=== PATIENT | male | born 1940 | race Caucasian/White ===

== ENCOUNTER 2023-08-21 10:38 | Inpatient (IN) | payer BC ==
[2023-08-21] MEDS ORDERED: SODIUM CHLORIDE 1,000 ML IV ONE (11:09)
[2023-08-21 11:31] LABS: HEMATOCRIT 43.2 % (35.4-49); MCH 27.5 pg (25.7-33.7); MCHC 32.4 g/dl (32.0-35.9); MEAN CELL VOLUME 84.7 fl (80-96); MEAN PLT VOLUME 9.7 fl (7.5-11.1); PLATELET COUNT 176.2 10^3/uL (134-434); RDW 16.2 % (11.9-15.9); WHITE BLOOD COUNT 8.9 10^3/uL (4.0-10.8)
[2023-08-21 11:49] LABS: INR 1.28 (0.83-1.09); PROTHROMBIN TIME (PATIENT) 14.8 SEC (9.7-13.0)
[2023-08-21 11:52] LABS: ALBUMIN 4.1 g/dl (3.4-5.0); BILIRUBIN,TOTAL 1.1 mg/dl (0.2-1); CALCIUM 9.4 mg/dl (8.5-10.1); CREATININE 1.1 mg/dl (0.6-1.3); POTASSIUM 3.9 mmol/L (3.5-5.1); TOT PROT 6.6 g/dl (6.4-8.2)
[2023-08-21 12:38] LABS: PLATELET ESTIMATE ADEQUATE
[2023-08-21] MEDS ORDERED: APIXABAN 5 MG TABLET PO ONE (13:47)
[2023-08-21] MEDS ORDERED: METOPROLOL TARTRATE 25 MG TABLET (FP) PO ONE (14:16)
[2023-08-21] MEDS ORDERED: METOPROLOL TARTRATE 25 MG TABLET (FP) ONE (14:21)
[2023-08-21 15:50] VITALS: BMI 34.4
[2023-08-21] MEDS: METOPROLOL TARTRATE 25 MG TABLET (FP) PO SCH (17:21)
[2023-08-21] MEDS: APIXABAN 5 MG TABLET PO SCH (21:13)
[2023-08-21] MEDS: INSULIN SLIDING SCALE (NOVOLOG) 1 VIAL SQ SCH (21:17)
[2023-08-21] MEDS ORDERED: INSULIN (LEVEMIR) 100 UNITS/ML UNITS SQ SCH (22:00)
[2023-08-22] MEDS: METOPROLOL TARTRATE 25 MG TABLET (FP) PO SCH ×3 (00:19→15:08)
[2023-08-22] MEDS: INSULIN SLIDING SCALE (NOVOLOG) 1 VIAL SQ SCH ×3 (06:03→17:50)
[2023-08-22 06:04] VITALS: RESP 20
[2023-08-22 08:04] LABS: HEMATOCRIT 43.2 % (35.4-49); HEMOGLOBIN 13.8 G/dL (11.7-16.9); MCHC 31.8 g/dl (32.0-35.9); MEAN CELL VOLUME 84.8 fl (80-96); MEAN PLT VOLUME 10.3 fl (7.5-11.1); PLATELET COUNT 165.5 10^3/uL (134-434); RBC 5.09 10^6/uL (4.00-5.60); RDW 16.3 % (11.9-15.9); WHITE BLOOD COUNT 8.6 10^3/uL (4.0-10.8)
[2023-08-22] MEDS ORDERED: TAMSULOSIN HCL 0.4 MG CAP PO SCH (08:30)
[2023-08-22 08:42] LABS: BILIRUBIN,TOTAL 1.1 mg/dl (0.2-1); CALCIUM 9.3 mg/dl (8.5-10.1); CREATININE 1.1 mg/dl (0.6-1.3); MAGNESIUM 1.9 mg/dL (1.8-2.4); POTASSIUM 4.2 mmol/L (3.5-5.1); TOT PROT 6.6 g/dl (6.4-8.2)
[2023-08-22] MEDS: APIXABAN 5 MG TABLET PO SCH (09:40)
[2023-08-22] MEDS ORDERED: HYDROCHLOROTHIAZIDE 25 MG TABLET (FP) PO SCH (10:00)
[2023-08-22] MEDS ORDERED: LISINOPRIL 20 MG TABLET PO SCH (10:00)
[2023-08-22] MEDS ORDERED: FINASTERIDE 5 MG TABLET (FP) PO SCH (10:00)
[2023-08-22] MEDS ORDERED: amLODIPine BESYLATE 5 MG TABLET (FP) PO SCH (10:00)
[2023-08-22 11:25] VITALS: BP 123/78; PULSE 76; TEMP 97.8
[2023-08-22] MEDS ORDERED: metoPROLOL SUCCINATE 25 MG TAB.SR.24H (FP) PO SCH (22:00)
== END 2023-08-22 18:02 | disposition home or self-care (01) | DRG 726 ==
LOC: FER 10:38 → FM/S 13:14
PROVIDERS: ADMIT Student in an Organized Health Care Education/Training Program; ATTEND Internal Medicine
DX: N40.1 Benign prostatic hyperplasia with lower urinary tract symptoms (principal); I48.91 Unspecified atrial fibrillation; R35.0 Frequency of micturition; I10 Essential (primary) hypertension; E11.9 Type 2 diabetes mellitus without complications
CPT/HCPCS: 36415; 71046-TC-FY; 80053; 80061; 81003; 81015; 82550; 82553; 82962; 83036; 83735; 83880; 84443; 84484; 85027; 85610; 87086; 93005; 93306-TC; 99285-25

== ENCOUNTER 2023-12-22 10:16 | Inpatient (IN) | payer BC, OTHER ==
[2023-12-22 11:53] LABS: BASO % 0.8 % (0-2.0); EOS % 3.8 % (0-4.5); HEMATOCRIT 40.2 % (35.4-49); HEMOGLOBIN 13.8 GM/dL (11.7-16.9); LYMPH % 19.5 % (8-40); MCH 27.1 pg (25.7-33.7); MCHC 34.3 g/dl (32.0-35.9); MEAN PLT VOLUME 8.6 fl (7.5-11.1); NEUT % 66.9 % (42.8-82.8); PLATELET COUNT 189 10^3/uL (134-434); RBC 5.09 M/mm3 (4.00-5.60); RDW 18.5 % (11.9-15.9); WHITE BLOOD COUNT 9.1 K/mm3 (4.0-10.0)
[2023-12-22 11:57] LABS: EPI CELLS 6 /uL (0-25.1); HYALINE CASTS 1 /uL (0-3.1); PH,URINE 6.5 (5.0-8.0); URINE APPEARANCE TURBID; URINE BACTERIA 109 /uL (0-1359); URINE BILIRUBIN NEGATIVE (NEGATIVE); URINE COLOR YELLOW; URINE GLUCOSE (UA) NEGATIVE (NEGATIVE); URINE KETONE NEGATIVE (NEGATIVE); URINE LEUK ESTERASE 3+ (NEGATIVE); URINE NITRITE NEGATIVE (NEGATIVE); URINE PROTEIN 1+ (NEGATIVE); URINE WBC 15232 /uL (0-25.8)
[2023-12-22 12:30] LABS: URINE RBC 365 /uL (0-23.9); YEAST NONE SEEN (NEGATIVE)
[2023-12-22 12:50] LABS: POTASSIUM 4.1 mmol/L (3.5-5.1)
[2023-12-22 12:56] LABS: ALBUMIN 3.2 g/dl (3.4-5.0); BLOOD UREA NITROGEN 15.5 mg/dL (7-18); MAGNESIUM 1.9 mg/dL (1.8-2.4)
[2023-12-22 12:59] LABS: CREATININE 0.8 mg/dL (0.55-1.3); PHOSPHOROUS 3.4 mg/dL (2.5-4.9)
[2023-12-22 13:00] LABS: TOT PROT 6.8 g/dl (6.4-8.2)
[2023-12-22 13:04] LABS: N-TERMINAL BNP 2600.1 pg/ml (5-450)
[2023-12-22] MEDS ORDERED: FUROSEMIDE 40 MG/4 ML INJECTABLE VIAL ONE (14:52)
[2023-12-22] MEDS ORDERED: CEFTRIAXONE 1 GM/50 ML BAG ONE (14:52)
[2023-12-22] MEDS: FUROSEMIDE 40 MG/4 ML INJECTABLE VIAL IVPUSH ONE (14:59)
[2023-12-22] MEDS ORDERED: ACETAMINOPHEN 325 MG TABLET (FP) PO PRN (16:37)
[2023-12-22] MEDS ORDERED: CARVEDILOL 12.5 MG TABLET (FP) ONE (23:04)
[2023-12-22] MEDS ORDERED: APIXABAN 5 MG TABLET ONE (23:04)
[2023-12-22] MEDS: CARVEDILOL 12.5 MG TABLET (FP) PO SCH (23:10)
[2023-12-22] MEDS: INSULIN (LEVEMIR) 100 UNITS/ML UNITS SQ SCH (23:11)
[2023-12-22] MEDS: APIXABAN 5 MG TABLET PO SCH (23:11)
[2023-12-22] MEDS: INSULIN ASPART SLIDING SCALE (NOVOLOG) 1 VIAL SQ SCH (23:12)
[2023-12-23] MEDS ORDERED: INSULIN (LEVEMIR) 100 UNITS/ML UNITS SQ ONE ×2 (04:57→08:04)
[2023-12-23] MEDS ORDERED: INSULIN (NOVOLOG MIX 70/30) 100 UNITS/ML MDV SQ ONE (04:57)
[2023-12-23] MEDS ORDERED: INSULIN REGULAR HUMAN 100 UNITS/ML *VIAL ONE (04:57)
[2023-12-23 07:39] LABS: BASO % 0.4 % (0-2.0); EOS % 4.2 % (0-4.5); HEMATOCRIT 41.5 % (35.4-49); HEMOGLOBIN 13.8 GM/dL (11.7-16.9); LYMPH % 23.7 % (8-40); MCH 26.7 pg (25.7-33.7); MCHC 33.2 g/dl (32.0-35.9); MEAN CELL VOLUME 80.5 fl (80-96); MEAN PLT VOLUME 9.1 fl (7.5-11.1); NEUT % 60.7 % (42.8-82.8); PLATELET COUNT 187 10^3/uL (134-434); RBC 5.16 M/mm3 (4.00-5.60); RDW 18.5 % (11.9-15.9); WHITE BLOOD COUNT 9.7 K/mm3 (4.0-10.0)
[2023-12-23 07:44] LABS: POTASSIUM 3.9 mmol/L (3.5-5.1)
[2023-12-23 07:49] LABS: ALBUMIN 3.2 g/dl (3.4-5.0); BLOOD UREA NITROGEN 20.2 mg/dL (7-18); CALCIUM 8.9 mg/dL (8.5-10.1); MAGNESIUM 1.7 mg/dL (1.8-2.4)
[2023-12-23 07:53] LABS: TOT PROT 6.6 g/dl (6.4-8.2)
[2023-12-23] MEDS: TAMSULOSIN HCL 0.4 MG CAP PO SCH (08:11)
[2023-12-23] MEDS: FUROSEMIDE 40 MG/4 ML INJECTABLE VIAL IVPUSH SCH (09:00)
[2023-12-23] MEDS: LISINOPRIL 20 MG TABLET PO SCH (09:00)
[2023-12-23] MEDS: FINASTERIDE 5 MG TABLET (FP) PO SCH (09:00)
[2023-12-23] MEDS ORDERED: CEFTRIAXONE 1 GM/50 ML BAG ONE (09:02)
[2023-12-23] MEDS: CEFTRIAXONE 1 GM in DEXTROSE 5%-WATER - 50 ML IVPB SCH (09:10)
[2023-12-23] MEDS ORDERED: ALBUTEROL SO4 2.5/IPRATROPIUM 0.5 INH SOL 3 ML VIAL.NEB. NEB ONE (10:20)
[2023-12-23] MEDS ORDERED: INSULIN (NOVOLOG) ASPART 100 UNITS/ML 10ML VIAL ONE (11:19)
[2023-12-24 07:54] LABS: POTASSIUM 3.5 mmol/L (3.5-5.1)
[2023-12-24 08:06] LABS: ALBUMIN 3.1 g/dl (3.4-5.0); BLOOD UREA NITROGEN 25.5 mg/dL (7-18)
[2023-12-24 08:10] LABS: BILIRUBIN,TOTAL 0.9 mg/dL (0.2-1); TOT PROT 6.5 g/dl (6.4-8.2)
[2023-12-24] MEDS ORDERED: FUROSEMIDE 40 MG/4 ML INJECTABLE VIAL ONE (10:38)
[2023-12-24] MEDS ORDERED: cefTRIAXone SODIUM 1 GM VIAL ONE (10:39)
[2023-12-24 15:33] VITALS: BMI 28.0
[2023-12-24] MEDS ORDERED: APIXABAN 5 MG TABLET ONE (22:04)
[2023-12-24] MEDS ORDERED: CARVEDILOL 12.5 MG TABLET (FP) ONE (22:05)
[2023-12-25 07:11] VITALS: RESP 16
[2023-12-25] MEDS ORDERED: CEFTRIAXONE 1 GM/50 ML BAG ONE (11:28)
[2023-12-25] MEDS ORDERED: INSULIN (LEVEMIR) 100 UNITS/ML UNITS SQ ONE (11:28)
[2023-12-25] MEDS ORDERED: INSULIN REGULAR HUMAN 100 UNITS/ML *VIAL ONE (13:21)
[2023-12-25 13:44] VITALS: BP 132/78; PULSE 68; TEMP 98.9
== END 2023-12-25 13:45 | disposition home or self-care (01) | DRG 291 ==
LOC: JER 10:16 → JERBED 13:43
PROVIDERS: ADMIT Internal Medicine; ATTEND Internal Medicine
DX: I11.0 Hypertensive heart disease with heart failure (principal); I50.33 Acute on chronic diastolic (congestive) heart failure; N39.0 Urinary tract infection, site not specified; I48.91 Unspecified atrial fibrillation; B95.2 Enterococcus as the cause of diseases classified elsewhere; N40.0 Benign prostatic hyperplasia without lower urinary tract symptoms; E78.00 Pure hypercholesterolemia, unspecified; E11.9 Type 2 diabetes mellitus without complications; M19.012 Primary osteoarthritis, left shoulder; M19.011 Primary osteoarthritis, right shoulder
CPT/HCPCS: 36415; 73030-TC-LT-FY; 73030-TC-RT-FY; 80053; 80061; 81003; 82550; 82962; 83036; 83735; 83880; 84100; 84443; 84484; 85025; 87086; 87186; 93005; 93010; 93970-TC; 99285-25